=== PATIENT | male | born 1995 | race Caucasian/White ===

== ENCOUNTER 2022-10-10 12:44 | Outpatient (CLI) | payer OTHER, SELFPAY ==
--- NOTE | ~2022-10-10 | MR_ITS ---
. EXAMINATION: MR abdomen wo/w con DATE: 10/10/2022 13:53 INDICATION: Kidney mass. TECHNIQUE: Magnetic resonance imaging (MRI) of the abdomen was performed without and with 20 mL Multi Thony intravenous contrast. COMPARISON: None. FINDINGS: The liver is normal. The gallbladder is contracted. The spleen, pancreas, and adrenal glands are norm al. The stomach is distended with food. There is moderate atrophy of right kidney. There is a dromeda ry hump of left kidney. There is cortical thinning of left kidney. There are cysts in left kidney dannie suring up to 13 mm. There is bilateral gynecomastia. The small and large bowel are normal in caliber. There are no pathologically enlarged lymph nodes. There is no free intraperitoneal fluid. There is a left flank hernia containing fat. IMPRESSION: 1. Moderate atrophy of right kidney and mild atrophy of left kidney. No malignancy. 2. Left flank hernia containing fat. Reviewed, dictated and finalized at location A. IMPRESSION: 1. Moderate atrophy of right kidney and mild atrophy of left kidney. No maligna ncy. 2. Left flank hernia containing fat.
== END 2022-10-10 12:45 | disposition home or self-care (01) ==
PROVIDERS: Visit Provider Internal Medicine Nephrology
DX: N28.89 Other specified disorders of kidney and ureter (principal); M10.9 Gout, unspecified; K44.9 Diaphragmatic hernia without obstruction or gangrene
CPT/HCPCS: 74183; A9577